=== PATIENT | male | born 1995 | race Asian ===

== ENCOUNTER 2020-02-04 10:42 | Emergency (ER) | payer OTHER ==
[~2020-02-04] VITALS: Ht 172.7 cm; Wt 90.7 kg
[2020-02-04 10:49] VITALS: BP 142/97
--- NOTE | 2020-02-04 11:21 | NUR ---
covid 19 swab collected and sent to lab
--- NOTE | 2020-02-05 22:41 | NUR ---
LAB CALLED REGARDING POSITIVE COVID RESULT
== END 2020-02-04 12:40 | disposition home or self-care (01) ==
LOC: ER 10:47
DX: U07.1 COVID-19 (principal); J12.89 Other viral pneumonia
CPT/HCPCS: 71045; 87426; 99284; C9803; U0003